=== PATIENT | male | born 1950 | race Caucasian/White ===

== ENCOUNTER 2018-06-02 18:43 | Inpatient (IN) | payer BC, MEDICARE ==
[~2018-06-02] VITALS: Ht 182.9 cm; Wt 96.4 kg
[2018-06-02] MEDS ORDERED: COZAAR50 MG PO (18:52)
[2018-06-02] MEDS ORDERED: CELEXA20 MG PO (18:53)
[2018-06-02] MEDS ORDERED: FENOGLIDE40 MG PO (18:53)
[2018-06-02] MEDS ORDERED: ASPIRIN81 MG PO (18:53)
[2018-06-02] MEDS ORDERED: TRAZODONE HCL100 MG PO (18:54)
[2018-06-02] MEDS ORDERED: SLEEP AID25 M1 PO (18:54)
[2018-06-02] MEDS ORDERED: XANAX0.25 MG PO (18:55)
[2018-06-02 19:33] LABS: BASOPHILS 0.4 % (0-2); EOSINOPHILS 6.3 % (0-7); HEMATOCRIT 42.3 % (42.0-54.0); HEMOGLOBIN 14.4 g/dL (13.5-17.5); IMMATURE GRANULOCYTES 0.1 % (0-5); LYMPHOCYTES 28.3 % (15-50); MCH 31.6 pg (26.0-34.0); MCV 92.8 fL (80.0-100.0); MEAN PLATELET VOLUME 10.4 fL (7.4-10.4); MONOCYTES 13.9 % (2-11); PLATELET COUNT 216 10x3/uL (130-400); RBC 4.56 10x6/uL (4.20-6.10); RDW 12.9 % (11.5-14.5); WBC 7.4 10x3/uL (4.8-10.8)
--- NOTE | 2018-06-02 19:39 | NUR ---
PT IN WITH C/O N/V/D, MID ABD PAIN, X 9 DAYS, FRIEND AT BEDSIDE.
[2018-06-02 19:41] LABS: APPEARANCE CLEAR (CLEAR); BILIRUBIN NEGATIVE (NEGATIVE); COLOR YELLOW (YELLOW); GLUCOSE NEGATIVE (NEGATIVE); KETONE NEGATIVE (NEGATIVE); NITRITE NEGATIVE (NEGATIVE); PROTEIN NEGATIVE (NEGATIVE); UROBILINOGEN NORMAL (NORMAL)
[2018-06-02 19:48] LABS: ALBUMIN 3.4 g/dL (3.4-5.0); ANION GAP 15.9 mmol/L (8-16); BILIRUBIN - TOTAL 0.66 mg/dL (0.2-1.3); CALCIUM 8.9 mg/dL (8.5-10.1); CARBON DIOXIDE 25.4 mmol/L (21.0-32.0); CREATININE - SERUM 1.2 mg/dL (0.6-1.3); POTASSIUM - SERUM 4.3 mmol/L (3.5-5.1); PROTEIN - SERUM 7.1 g/dL (6.4-8.2)
[2018-06-02 20:19] VITALS: BP 124/59
[2018-06-02 21:00] VITALS: BP 122/60
[2018-06-02 22:00] VITALS: BP 121/55
--- NOTE | 2018-06-02 22:00 | NUR ---
PT TO BE ADMITTED, MEDICATION GIVEN PER ORDER, CALL LIGHT WITHIN REACH.
[2018-06-02 23:19] VITALS: BP 123/53
[2018-06-03] VITALS (7 sets, daily range): BP systolic 117–130; BP diastolic 67–79; Ht 182.9 cm; Wt 96.4 kg
--- NOTE | 2018-06-03 00:09 | NUR ---
REPORT RECEIVED FROM RICH HUERTAS
--- NOTE | 2018-06-03 00:22 | NUR ---
ARRIVED TO FLOOR VIA STRETCHER, ACCOMPANIED BY HOSPITAL STAFF. ORIENTED TO UNIT, CALL LIGHT IN REACH. SEE NURSE ASSESSMENT.
[2018-06-03] MEDS ORDERED: CYMBALTA60 MG PO (01:05)
[2018-06-03] MEDS ORDERED: TEMAZEPAM30 MG PO (01:06)
--- NOTE | 2018-06-03 04:33 | NUR ---
SCREENPLAY WRITER AT BEDSIDE TO OBTAIN VITALS, CALL LIGHT IN REACH. WILL CONTINUE WITH PLAN OF CARE.
[2018-06-03 06:07] LABS: BASOPHILS 0.3 % (0-2); EOSINOPHILS 8.5 % (0-7); HEMATOCRIT 37.1 % (42.0-54.0); HEMOGLOBIN 12.6 g/dL (13.5-17.5); IMMATURE GRANULOCYTES 0.3 % (0-5); LYMPHOCYTES 23.7 % (15-50); MCH 31.3 pg (26.0-34.0); MCV 92.3 fL (80.0-100.0); MEAN PLATELET VOLUME 10.8 fL (7.4-10.4); MONOCYTES 12.5 % (2-11); NEUTROPHILS 54.7 % (40-80); PLATELET COUNT 209 10x3/uL (130-400); RBC 4.02 10x6/uL (4.20-6.10); RDW 12.9 % (11.5-14.5); WBC 6.3 10x3/uL (4.8-10.8)
[2018-06-03 06:38] LABS: ANION GAP 13.5 mmol/L (8-16); CALCIUM 8.1 mg/dL (8.5-10.1); CARBON DIOXIDE 25.9 mmol/L (21.0-32.0); CREATININE - SERUM 1.2 mg/dL (0.6-1.3); MAGNESIUM - SERUM 1.6 mg/dL (1.8-2.4); PHOSPHOROUS 3.3 mg/dL (2.5-4.9)
[2018-06-03 06:46] LABS: POTASSIUM - SERUM 3.4 mmol/L (3.5-5.1)
--- NOTE | 2018-06-03 07:36 | NUR ---
RESUMING PT CARE. PT LAYING IN BED ALERT AND ORIENTED, ASKING FOR PAIN MED. TURNING AND BEADING MACHINE OPERATOR AT BEDSIDE. CALL LIGHT IN REACH. WILL CONTINUE TO MONITOR AND FOLLOW PLAN OF CARE.
--- NOTE | 2018-06-03 10:13 | NUR ---
RESTS IN BED WITH EYES CLOSED. CALL LIGHT IN REACH. WILL MONITOR NEEDS.
--- NOTE | 2018-06-03 10:24 | NUR ---
PT IV INFILTRATED IN LEFT FA, I REMOVED THIS ONE AND STARTED A 22 G TO RIGHT FA, PT TOLERATED WELL. CALL LIGHT IN REACH, WILL CONTINUE TO MONITOR.
--- NOTE | 2018-06-03 23:09 | NUR ---
PT LAYING IN BED RESTING. DENIES PAIN AT THIS TIME, C/O CONGESTION. PT STATES THAT NASAL SPRAY ISNT WORKING. VITALS STABLE. MEDS TAKEN WITHOUT DIFFICULTY. IV TO R FOREARM PATENT. NO EDEMA OR SKIN BREAKDOWN NOTED. ALERT AND ORIENTED X 4. UP AB PARADISE. NO FURTHER CONCERNS AT THIS TIME. BED LOWERED AND LOCKED. CL IN REACH. SR UP X 2. CPOC.
[2018-06-04] VITALS: BP 123/75
--- NOTE | 2018-06-04 03:23 | NUR ---
RN NOTE: PATIENT APPEARS TO BE SLEEPING. RESPIRATIONS ARE EVEN AND UNLABORED. NO S/S OF DISTRESS. CALL LIGHT WITHIN REACH. WILL CPOC.
[2018-06-04 04:00] VITALS: BP 122/78
--- NOTE | 2018-06-04 07:10 | NUR ---
STATED TO PT WE NEED A STOOL COLLECTION. PLACED HAT IN COMMODE. PT VERBALIZED UNDERSTANDING AND STATED HE HAS NOT HAD A BM TO BE ABLE TO GET COLLECTION.
--- NOTE | 2018-06-04 10:05 | NUR ---
PT EANITNG TO TAKE A SHOWER. WRAPPED RIGHT FA IV AND GOT PT ITEMS NEEDED FOR SHOWER.
--- NOTE | 2018-06-04 10:08 | NUR ---
NO NEEDS OR C/O VOICED. CALL LIGHT IN REACH. WILL MONITOR.
--- NOTE | 2018-06-04 10:19 | NUR ---
WAITING FOR PHARMACY TO BRING FLONASE.
[2018-06-04 10:41] VITALS: BP 114/68
[2018-06-04 11:35] LABS: ANION GAP 12.1 mmol/L (8-16); CALCIUM 8.7 mg/dL (8.5-10.1); CARBON DIOXIDE 26.6 mmol/L (21.0-32.0); CREATININE - SERUM 1.2 mg/dL (0.6-1.3); POTASSIUM - SERUM 3.7 mmol/L (3.5-5.1)
[2018-06-04 11:41] LABS: BASOPHILS 0.5 % (0-2); HEMATOCRIT 38.1 % (42.0-54.0); HEMOGLOBIN 13.1 g/dL (13.5-17.5); IMMATURE GRANULOCYTES 0.2 % (0-5); LYMPHOCYTES 23.8 % (15-50); MCH 31.3 pg (26.0-34.0); MCHC 34.4 g/dL (31.0-37.0); MCV 90.9 fL (80.0-100.0); MEAN PLATELET VOLUME 10.5 fL (7.4-10.4); MONOCYTES 13.2 % (2-11); NEUTROPHILS 55.3 % (40-80); PLATELET COUNT 225 10x3/uL (130-400); RBC 4.19 10x6/uL (4.20-6.10); RDW 12.7 % (11.5-14.5); WBC 5.9 10x3/uL (4.8-10.8)
--- NOTE | 2018-06-04 13:20 | NUR ---
PHARMACY HAS STILL NOT BROUGHT FLONASE.
--- NOTE | 2018-06-04 14:21 | NUR ---
20 GAUGE IV PLACED TO LEFT HAND X 1 STICK. GOOD BLOOD RETURN, EASY FLUSH. TAPED, DATED AND SECURED. PATIENT TOLERATED IV PLACEMENT WELL. PATIENT LEFT UNIT VIA WHEELCHAIR AT THIS TIME FOR CTA OF CHEST.
[2018-06-04 14:29] VITALS: BP 127/64
--- NOTE | 2018-06-04 14:37 | NUR ---
PT RETURNED FROM CT VIA WC.
[2018-06-04 17:11] VITALS: BP 120/58
--- NOTE | 2018-06-04 17:33 | NUR ---
PT RECEIVED FULL LIQUID DINNER TRAY AND NOT REGULAR DIET DINNER TRAY. CALLED AND SPOKE WITH DIETARY AND THEY STATED THEY WOULD BRING A REGULAR DIET DINNER TRAY.
--- NOTE | 2018-06-04 18:41 | NUR ---
PT HAS NOT HAD A BM TO COLLECT STOOL SAMPLE.
[2018-06-04 20:30] VITALS: BP 121/75
--- NOTE | 2018-06-04 21:46 | NUR ---
PT AWAKE AND ALERT X 4. UP AB PARADISE. DENIES PAIN AT THIS TIME. VITALS STABLE. MEDS TAKEN WITHOUT DIFFICULTY. AMBIEN GIVEN FOR SLEEP. ROOM AIR. IV TO R FOREARM SL. IV TO L HAND SL. PASCU[place] YAQUI. NO EDEMA NOTED. NO FURTHER CONCERNS AT THIS TIME. BED LOWERED AND LOCKED. CL IN REACH. SR UP X 2. CPOC.
[2018-06-05 04:30] VITALS: BP 114/71
--- NOTE | 2018-06-05 05:00 | NUR ---
PT RESTING IN BED WITH NO DISTRESS. RESPS EVEN/NONLABORED. MONITOR AND CPOC. CALL LIGHT IN REACH. NO NEEDS AT THIS TIME.
[2018-06-05 06:53] LABS: ANION GAP 12.6 mmol/L (8-16); CALCIUM 8.8 mg/dL (8.5-10.1); CARBON DIOXIDE 28.2 mmol/L (21.0-32.0); CREATININE - SERUM 1.3 mg/dL (0.6-1.3); POTASSIUM - SERUM 3.8 mmol/L (3.5-5.1)
[2018-06-05 06:54] LABS: BASOPHILS 1.3 % (0-2); EOSINOPHILS 6.7 % (0-7); HEMATOCRIT 37.5 % (42.0-54.0); HEMOGLOBIN 12.9 g/dL (13.5-17.5); IMMATURE GRANULOCYTES 0.5 % (0-5); LYMPHOCYTES 30.5 % (15-50); MCHC 34.4 g/dL (31.0-37.0); MEAN PLATELET VOLUME 10.2 fL (7.4-10.4); MONOCYTES 13.3 % (2-11); NEUTROPHILS 47.7 % (40-80); PLATELET COUNT 205 10x3/uL (130-400); RBC 4.03 10x6/uL (4.20-6.10); RDW 12.7 % (11.5-14.5); WBC 6.1 10x3/uL (4.8-10.8)
[2018-06-05 06:55] LABS: MCV 93.1 fL (80.0-100.0)
--- NOTE | 2018-06-05 09:00 | NUR ---
PT TOLERATING REGULAR DIET WELL.
[2018-06-05 09:18] VITALS: BP 112/72
--- NOTE | 2018-06-05 10:08 | NUR ---
RESTS IN BED WITH EYES CLOSED. IV PATENT. CALL LIGHT IN REACH. WILL CONT. PLAN OF CARE.
[2018-06-05] MEDS ORDERED: FLAGYL500 MG PO (11:46)
[2018-06-05] MEDS ORDERED: LEVAQUIN750 MG PO (11:46)
[2018-06-05] MEDS ORDERED: PROTONIX40 MG PO (11:46)
--- NOTE | 2018-06-05 12:38 | NUR ---
PT REFUSED FLU VACCINE.
--- NOTE | 2018-06-05 12:45 | NUR ---
PER MAN SHE STATED TO [employer] PRODUCTION MANAGER TO MAKE SURE I HAVE PT OUT OF HERE AND DISCHARGED BY 1300. CALLED PUMP REBUILDER AND STATED TO HER THIS IS THE SECIND PT TODAY THAT THEY HAVE LET DEMAND LEAVE AND I HAD TO DROP MY CARE FOR MY OTHER PATIENTS AND GET IT DONE. I JUST GOT THAT ONE DISCHARGED AND NOW I PROBABLY WILL NOT BE DONE BY 1300 WITH THIS NEXT ONE. PUMP REBUILDER STATED TO ME JUST DO THE BEST YOU CAN THAT'S ALL WE CAN ASK IF PT HAS A PROBLEM WITH THIS AND WANTS TO LEAVE AMA CALL ME AND I WILL COME SPEAK WITH HIM.
--- NOTE | 2018-06-05 13:17 | NUR ---
DISCHARGE INSTRUCTIONS GIVEN TO PT. QUESTIONS ANSWERED. CHART COPY SIGNED. LEFT HAND 20G IV DC'D WITH CATH INTACT. RIGHT FA 22G IV DC'D WITH CATH INTACT. PT WHEELED DOWN IN WC.
--- NOTE | 2018-06-06 09:02 | MORECARE ---
CASE MANAGEMENT DISCHARGE SUMMARY PATIENT: NATASHA BOWMAN UNIT: [id number] ADM DATE: 06/02/18 AGE: 68 : 54 SEX: M ROOM/BED: D.2126 AUTHOR: KALANI BARTON PHYSICIAN: REFERRING PHYSICIAN: LUPE MARTINES MD DATE OF SERVICE: 06/06/18 Discharge Plan Patient Name: NAT[facility] BOWMAN [facility] [facility] 1950 Planned Disposition: Home Anticipated Discharge Date: 06/05/18 Discharge Date: 06/05/2018 Expected LOS: 3 Initial Reviewer: [email or web address] Initial Review Date: 06/06/2018 Generated: 06/06/18 10:01 am Patient Name: NATASHA BOWMAN Page [id number] at 0902 All edits/amendments must be made on the electronic document DICTATION DATE: 06/06/18900 EFFERV[employer]CENT SALTS COMPOUNDER: SOFI 06/06/18900 RPT#: [id number] DC DATE:06/05/18 STATUS: DIS IN [facility] [address] [facility] [place] [address] END OF REPORT
== END 2018-06-05 13:18 | disposition home or self-care (01) | DRG 391 ==
LOC: D.ER 18:43 → D.M2 22:12 → D.EDHOLD 22:12 → D.M2 23:33
PROVIDERS: Emergency Medicine; Family Medicine; ADMIT Internal Medicine Nephrology
DX: K57.92 Diverticulitis of intestine, part unspecified, without perforation or abscess without bleeding (principal); J96.01 Acute respiratory failure with hypoxia; J18.9 Pneumonia, unspecified organism; J98.11 Atelectasis; D50.9 Iron deficiency anemia, unspecified; I10 Essential (primary) hypertension; F32.9 Major depressive disorder, single episode, unspecified; E87.6 Hypokalemia; E83.42 Hypomagnesemia